=== PATIENT | male | born 1985 | race Caucasian/White ===

== ENCOUNTER 2018-05-29 21:31 | Emergency (ER) | payer SELFPAY ==
[~2018-05-29] VITALS: Ht 172.7 cm; Wt 74.8 kg
[2018-05-29 21:50] VITALS: BP 114/78
[2018-05-29 22:35] LABS: Amphetamine Screen, Urine NEGATIVE (NEGATIVE); Barbiturate Scree,Urine NEGATIVE (NEGATIVE); Benzodiazephine Screen, Urine NEGATIVE (NEGATIVE); Cannabinoid Screen, Urine NEGATIVE (NEGATIVE); Cocaine Screen, Urine NEGATIVE (NEGATIVE); Opiate Scree,Urine NEGATIVE (NEGATIVE); Phencyclidine Screen, Urine NEGATIVE (NEGATIVE)
== END 2018-05-29 23:07 | disposition left against medical advice (07) ==
LOC: ER 21:31
DX: M79.672 Pain in left foot (principal); M79.671 Pain in right foot
CPT/HCPCS: 80307

== ENCOUNTER 2018-05-30 11:34 | Emergency (ER) | payer SELFPAY ==
[~2018-05-30] VITALS: Ht 172.7 cm; Wt 74.8 kg
[2018-05-30 11:36] VITALS: BP 118/62
== END 2018-05-30 12:30 | disposition home or self-care (01) ==
LOC: ER 11:34
DX: K29.70 Gastritis, unspecified, without bleeding (principal); F17.210 Nicotine dependence, cigarettes, uncomplicated; F12.10 Cannabis abuse, uncomplicated

== ENCOUNTER 2020-08-21 20:57 | Emergency (ER) | payer MEDICAID ==
[~2020-08-21] VITALS: Ht 172.7 cm; Wt 59.0 kg
[2020-08-21 21:12] VITALS: BP 131/80
== END 2020-08-21 21:19 ==
LOC: EDUNIT# 20:57 → EDBD 20:57 → ER 20:59